=== PATIENT | female | born 1945 | race Caucasian/White ===

== ENCOUNTER 2017-10-25 15:54 | Outpatient (CLI) | payer MEDICARE, OTHER | END 2017-10-25 15:55 | disposition home or self-care (01) | LOC: BICMAMMO 15:54 | PROVIDERS: ATTEND Nurse Practitioner Family | DX: Z12.31 Encounter for screening mammogram for malignant neoplasm of breast (principal); Z85.828 Personal history of other malignant neoplasm of skin | CPT/HCPCS: 77063; 77067 ==

== ENCOUNTER 2018-05-12 10:28 | Outpatient (CLI) | payer MEDICARE, OTHER ==
--- NOTE | 2018-05-12 12:36 | MRI ---
MRI RIGHT KNEE: DATE: 05/12/2018. PROVIDED CLINICAL HISTORY: Right knee pain. FINDINGS: The anterior cruciate ligament, posterior cruciate ligament, medial collateral ligament, and lateral collateral ligamentous complex demonstrate an intact MR appearance, as does the extensor mechanism. There is a nondisplaced oblique tear involving the body of the medial meniscus. The lateral meniscus demonstrates no evidence for tear. No focal articular cartilage defect is apparent. There is a mild knee joint effusion with small Jha's cyst. There is nonspecific patchy signal alteration on fluid-sensitive sequences involving he subcutaneous adipose layer at the anteromedial aspect of the knee adjacent to the distal patellar tendon. There i s no evidence for a focal fluid collection. IMPRESSION: 1. Nondisplaced body of medial meniscus tear. 2. Mild knee joint effusion with Jha's cyst formation. 3. Nonspecific signal alteration involving the subcutaneous adipose layer of the anteromedial knee i nferiorly. This could reflect bruising or edema. Correlate with concerns for cellulitis. POS: [facility]
== END 2018-05-12 10:29 | disposition home or self-care (01) ==
LOC: BICMRI 10:28
PROVIDERS: ATTEND Nurse Practitioner Family
DX: M25.561 Pain in right knee (principal); S83.241A Other tear of medial meniscus, current injury, right knee, initial encounter; M25.461 Effusion, right knee; R93.7 Abnormal findings on diagnostic imaging of other parts of musculoskeletal system

== ENCOUNTER 2021-01-22 11:54 | Outpatient (CLI) | payer MEDICARE | END 2021-01-22 11:55 | disposition home or self-care (01) | LOC: BICMAMMO 11:54 | PROVIDERS: ATTEND Family Medicine | DX: Z12.31 Encounter for screening mammogram for malignant neoplasm of breast (principal); Z85.828 Personal history of other malignant neoplasm of skin | CPT/HCPCS: 77063; 77067 ==

== ENCOUNTER 2024-02-29 14:22 | Outpatient (CLI) | payer MEDICARE | END 2024-02-29 14:23 | disposition home or self-care (01) | LOC: BICMAMMO 14:22 | PROVIDERS: ATTEND Family Medicine | DX: Z12.31 Encounter for screening mammogram for malignant neoplasm of breast (principal); R31.29 Other microscopic hematuria; Z85.828 Personal history of other malignant neoplasm of skin | CPT/HCPCS: 76770; 77063; 77067 ==